=== PATIENT | male | born 1985 | race Two or more races ===

== ENCOUNTER 2024-08-14 10:47 | Emergency (ER) | payer MEDICAID, OTHER ==
[~2024-08-14] VITALS: Ht 172.7 cm; Wt 87.3 kg
[~2024-08-14 10:47] MED LIST: CLIN-97 PO; IBUP-1986 PO
[2024-08-14] MEDS: ketorolac trometh 15mg/ml vial 15 MG/ML ML IM ONE (15:38)
[2024-08-14] MEDS: ondansetron 4mg rapidly disintigrating tab PO ONE (15:39)
[2024-08-14] MEDS: HYDROcodone/acetaminophen 10/325mg tab PO ONE (15:44)
[2024-08-14] MEDS ORDERED: HYDR-3965 PO (15:49)
[2024-08-14 17:13] VITALS: BP 142/88; PULSE 90; RESP 16; TEMP 98.2; O2SAT 98
== END 2024-08-14 17:21 | disposition home or self-care (01) ==
LOC: ER 10:47
DX: S09.90XA Unspecified injury of head, initial encounter (principal); S19.9XXA Unspecified injury of neck, initial encounter; S00.33XA Contusion of nose, initial encounter; M54.50 Low back pain, unspecified; M54.2 Cervicalgia; Z88.0 Allergy status to penicillin; Z79.899 Other long term (current) drug therapy; V49.40XA Driver injured in collision with unspecified motor vehicles in traffic accident, initial encounter; V89.2XXA Person injured in unspecified motor-vehicle accident, traffic, initial encounter; Y93.89 Activity, other specified; Y92.89 Other specified places as the place of occurrence of the external cause; Y99.8 Other external cause status
CPT/HCPCS: 72040; 72070; 72100; 72125; 73564; 96372; 99285; J1885; L0172